=== PATIENT | male | born 1980 | race Caucasian/White ===

== ENCOUNTER 2019-01-20 20:14 | Emergency (ER) | payer SELFPAY ==
[~2019-01-20] VITALS: Ht 157.5 cm; Wt 72.7 kg
[2019-01-20] MEDS ORDERED: KEPPRA 500MG500 MG PO (20:36)
[2019-01-20 20:37] LABS: ALBUMIN 3.4 gm/dL (3.5-5.0); BILIRUBIN,TOTAL 3.9 mg/dL (0.0-1.0); C-REACTIVE PROTEIN 1.6 mg/dL (0.0-0.9); CALCIUM 8.2 mg/dL (8.4-10.2); CREATININE, serum 0.51 (0.66-1.25); POTASSIUM 3.6 mmol/L (3.4-5.0); TOTAL PROTEIN 7.1 gm/dL (6.4-8.2)
[2019-01-20 20:45] LABS: BASO # 0.1 (0.0-0.2); BASO % 0.9 % (0.0-2.0); EOS # 0.4 (0.0-0.7); EOS % 5.7 % (0-4.0); GRAN # 3.1 (1.4-6.5); HEMATOCRIT 39.8 % (42.0-52.0); HEMOGLOBIN 13.4 g/dl (13.5-18.0); LYMPH # 2.1 (1.2-3.4); LYMPH % 31.8 % (20.0-51.0); MEAN CELL VOLUME 100 fl (80.0-100.0); MEAN CORPUSCULAR HEMOGLOBIN 34 pg (27.0-31.0); MEAN CORPUSCULAR HGB CONC 34 g/dl (33.0-37.0); MEAN PLATELET VOLUME 9.7 fl (7.4-10.4); MONO # 0.8 (0.1-0.6); PLATELET COUNT 109 K/mm3 (130-400); RED BLOOD COUNT 3.97 M/mm3 (4.20-5.60); REDCELL DISTRIBUTION WIDTH-CV 16.3 % (11.5-14.5)
[2019-01-20 20:50] LABS: PROLACTIN 67.4 ng/mL (3.7-17.9)
[2019-01-20] MEDS ORDERED: KEPPRA1000 MG PO (21:07)
[2019-01-20 22:00] VITALS: BP 115/73; PULSE 100; TEMP 98.1
== END 2019-01-20 22:10 | disposition home or self-care (01) ==
LOC: COL.ER 20:14 → EDBD 20:14 → COL.ER 22:10
PROVIDERS: Emergency Medicine
DX: G40.909 Epilepsy, unspecified, not intractable, without status epilepticus (principal); R94.5 Abnormal results of liver function studies; K21.9 Gastro-esophageal reflux disease without esophagitis
CPT/HCPCS: J1953; J2060; J7030

== ENCOUNTER 2019-07-15 22:26 | Inpatient (IN) | payer SELFPAY ==
[~2019-07-15] VITALS: Ht 170.2 cm; Wt 89.0 kg
[~2019-07-15 22:26] MED LIST: KEPPRA 500MG500 MG PO; KEPPRA1000 MG PO
[2019-07-15 23:21] LABS: BASO # 0.1 (0.0-0.2); BASO % 0.9 % (0.0-2.0); EOS # 0.3 (0.0-0.7); EOS % 5.1 % (0-4.0); GRAN # 3.5 (1.4-6.5); HEMATOCRIT 30.6 % (42.0-52.0); HEMOGLOBIN 10.4 g/dl (13.5-18.0); LYMPH # 0.9 (1.2-3.4); LYMPH % 16.5 % (20.0-51.0); MEAN CELL VOLUME 98 fl (80.0-100.0); MEAN CORPUSCULAR HEMOGLOBIN 33 pg (27.0-31.0); MEAN CORPUSCULAR HGB CONC 34 g/dl (33.0-37.0); MEAN PLATELET VOLUME 8.4 fl (7.4-10.4); MONO # 0.6 (0.1-0.6); MONO % 11.3 % (1.7-9.3); PLATELET COUNT 149 K/mm3 (130-400); RED BLOOD COUNT 3.11 M/mm3 (4.20-5.60); REDCELL DISTRIBUTION WIDTH-CV 15.9 % (11.5-14.5)
[2019-07-15 23:33] LABS: ALBUMIN 2.7 gm/dL (3.5-5.0); BILIRUBIN,TOTAL 2.6 mg/dL (0.0-1.0); C-REACTIVE PROTEIN 4.7 mg/dL (0.0-0.9); CALCIUM 7.9 mg/dL (8.4-10.2); CREATININE, serum 0.52 (0.66-1.25); POTASSIUM 3.4 mmol/L (3.4-5.0)
[2019-07-16] VITALS (8 sets, daily range): BP systolic 115–159; BP diastolic 37–76; PULSE 74–115; TEMP 97.8–101.3
--- NOTE | 2019-07-16 04:17 | NUR ---
In to do inital assessment on the patient. patient is noncomplient when asking questions that pertain to the 5page assessment even with an judicial reporter and asking them in a different format. unable to get 5page assessment completed at this time from stopping at least 3 different times. lung sounds are clear. s1&s2 are audible. bowel sounds are audible. weeping ulcers on the left lower leg, none noticed on the right leg at this time. BLE edema to the lower legs. charge nurse notified that the patient did tell me that he does have shortness of breath especially in the mornings.
[2019-07-16 06:18] LABS: MEAN CELL VOLUME 100 fl (80.0-100.0); MEAN CORPUSCULAR HGB CONC 33 g/dl (33.0-37.0); PLATELET COUNT 136 K/mm3 (130-400); RED BLOOD COUNT 2.84 M/mm3 (4.20-5.60); REDCELL DISTRIBUTION WIDTH-CV 15.9 % (11.5-14.5)
[2019-07-16 06:24] LABS: HEMATOCRIT 28.4 % (42.0-52.0); HEMOGLOBIN 9.3 g/dl (13.5-18.0); MEAN CORPUSCULAR HEMOGLOBIN 33 pg (27.0-31.0)
[2019-07-16 06:35] LABS: ALBUMIN 2.3 gm/dL (3.5-5.0); CALCIUM 7.5 mg/dL (8.4-10.2); CREATININE, serum 0.43 (0.66-1.25); MAGNESIUM 1.8 mg/dL (1.6-2.3); POTASSIUM 3.5 mmol/L (3.4-5.0); TOTAL PROTEIN 6.2 gm/dL (6.4-8.2)
--- NOTE | 2019-07-16 08:00 | NUR ---
Patient in bed resting. Alert and oriented x 3. Assessment complete. Patient has ulcers to right mcallister. BLE with edema +2. IV fluids infusing per orders to left AC. Denies pain at this time. Denies further needs at this time.
--- NOTE | 2019-07-16 10:22 | NUR ---
Contacted Dr. Thao about patient diet, US ok to wait until Thursday per Dr. Thao
--- NOTE | 2019-07-16 11:24 | NUR ---
Met with patient at the door for translation with nurse. Patient slovak speaking: Patient reports that he resides locally with his Girlfriend. Patient reports that his emergency contact is his friend German at . Patient indicated that he will use a taxi or friend to get home. Patient reports that he uses crutches but not all the time. Patient denies any other DME use but is concerns about his wounds and how they are going to close and heal. Patient reports that he is in need of homehealth but does not have any money. DOes not have a PCP. Patient is okay with a referral for a PCP. Patient reports that he uses [facility] [address] for medications. SW will make referral to [facility] and to [facility] for financial supports.
--- NOTE | 2019-07-16 11:37 | NUR ---
Sent referral to [facility] and to [facility]. Via fax
--- NOTE | 2019-07-16 11:55 | NUR ---
Vascular here for echo and pj US .
--- NOTE | 2019-07-16 16:29 | NUR ---
Notified Stacia CHASE, patient has increased temp of 101, rechecked at 100.6. New order for tylenol entered.
[2019-07-16 18:31] LABS: RETIC # 0.09 M/mm3 (0.02-0.16); RETIC % 3.2 % (0.5-3.52)
[2019-07-16 18:49] LABS: IRON,SERUM 24 ug/dL (35-150)
--- NOTE | 2019-07-16 18:49 | NUR ---
Patient has done well throughout the day. Minimal needs. Educated patient on medications and use of urinal to track urine output. Denies pain throughout the day. Denies further needs at this time. Will report off to car shifter.
[2019-07-16 18:59] LABS: TOTAL IRON BINDING CAPACITY 225 ug/dL (261-462)
--- NOTE | 2019-07-16 21:25 | NUR ---
Wound culture obtained from right mcallister largest ulcer, draining brownish fluid. Has smaller ulcer below large ulcer on mcallister, also draining. Pt is alert and oriented x4. Is Romansh speaking, does speak and understand Congolese. Has IVF to left AC infusing without redness or swelling. Washed bilateral lower legs with chlorhexadine scrub, left open to air. Pt reports sensitivity to skin on legs, tolerates wash without problem. Has bilateral lower leg edema. Denies being a diabetic. Takes Melatonin at this time.
--- NOTE | 2019-07-17 | NUR ---
Pt resting well at this time. IV antibiotics and fluids infusing without problem. Using urinal at bedside, seizure pads on.
[2019-07-17 03:18] VITALS: BP 119/62; PULSE 98; TEMP 98.9
--- NOTE | 2019-07-17 06:00 | NUR ---
Pt denies needs, has used urinal x2 this shift. IV site patent to left AC.
[2019-07-17 07:12] LABS: BASO % 0.8 % (0.0-2.0); EOS # 0.2 (0.0-0.7); EOS % 4.7 % (0-4.0); GRAN % 57.8 % (42.2-75.2); LYMPH # 1.1 (1.2-3.4); LYMPH % 22.2 % (20.0-51.0); MEAN CELL VOLUME 101 fl (80.0-100.0); MEAN CORPUSCULAR HGB CONC 33 g/dl (33.0-37.0); MEAN PLATELET VOLUME 9.2 fl (7.4-10.4); MONO # 0.7 (0.1-0.6); MONO % 14.1 % (1.7-9.3); PLATELET COUNT 142 K/mm3 (130-400); RED BLOOD COUNT 2.94 M/mm3 (4.20-5.60); REDCELL DISTRIBUTION WIDTH-CV 16.4 % (11.5-14.5)
[2019-07-17 07:15] LABS: HEMATOCRIT 29.6 % (42.0-52.0); HEMOGLOBIN 9.9 g/dl (13.5-18.0); MEAN CORPUSCULAR HEMOGLOBIN 34 pg (27.0-31.0)
[2019-07-17 07:17] LABS: ALBUMIN 2.3 gm/dL (3.5-5.0); BILIRUBIN,TOTAL 2.3 mg/dL (0.0-1.0); CALCIUM 7.8 mg/dL (8.4-10.2); CREATININE, serum 0.53 (0.66-1.25); POTASSIUM 3.5 mmol/L (3.4-5.0); TOTAL PROTEIN 6.4 gm/dL (6.4-8.2)
[2019-07-17 08:19] VITALS: BP 141/83; PULSE 97; TEMP 98
--- NOTE | 2019-07-17 09:48 | NUR ---
Report rcvd this AM from PUJA Peralta. Pt is resting in bed. Pt has no c/o pain, just some discomfort from sleeping in the bed. Pt got up to ambulate to bathroom, has difficult time walking. Bilower extremeties very swollen. No further concerns at this time.
[2019-07-17 10:19] LABS: INR 1.6 (0.8-3.0); PROTHROMBIN TIME 18.9 SECONDS (9.7-12.8)
[2019-07-17 10:23] VITALS: BP 157/105; PULSE 130; TEMP 99.4
--- NOTE | 2019-07-17 10:39 | NUR ---
Upon entry of pt room, The pt is visibly chilled and shivering. Pt VSS are as follows: BP 157/105, HR 130, RR 38, SpO2 94% RA, T 99.4. Pt is in severe pain in the RUQ with radiation to the back. Pt abdomen is Rounded and firm. Pt states he is having a hard time breathing. Physician contacted.
--- NOTE | 2019-07-17 11:07 | NUR ---
Notified Physician of unstable VS.
[2019-07-17 11:25] VITALS: BP 156/88; PULSE 115; TEMP 99.7
--- NOTE | 2019-07-17 14:41 | NUR ---
Pt resting in room. I&O monitored, pt output 450. Pt has c/o pain, currently manageable. Will continue to Monitor.
[2019-07-17 15:27] VITALS: BP 131/70; PULSE 104; TEMP 99.2
--- NOTE | 2019-07-17 19:14 | NUR ---
Report given to PUJA Weeks
--- NOTE | 2019-07-17 19:30 | NUR ---
Report received, assumed care for stereo plotter operator. Assessment complete. A&Ox3-very drowsy. C/O pain to bilat lower extremities-rating 8/10 with faces-described as throbbing. Motrin given per dr order. Bilat lower extremities elevated on pillows with chux. Right lower ext with two open ulcer areas. Scant amount of yellow drainage noted. Multiple areas of old crusing. Left lower extremity with multiple crusting/healing ulcers. Toes black in color bilat. Denies current needs. Will monitor.
[2019-07-17 20:07] VITALS: BP 153/94; PULSE 109; TEMP 101.8
--- NOTE | 2019-07-17 20:47 | NUR ---
JOLENE Dave notified of elevated temp. New orders received and initiated.
--- NOTE | 2019-07-17 21:55 | NUR ---
JOLENE Sanchez notified of temp 101.5. OK to given tylenol dose early. Cold wash clothes to head-extra blankets removed and temp in room adjusted. Will monitor.
[2019-07-18] VITALS (7 sets, daily range): BP systolic 114–157; BP diastolic 56–85; PULSE 75–116; TEMP 97.8–100.8
--- NOTE | 2019-07-18 01:00 | NUR ---
C/O pain to bilat lower extremities-rating 8/10 using faces-described as throbbing. Mortin given per dr goldman
--- NOTE | 2019-07-18 02:00 | NUR ---
Bilat lower extremities washed with chlorhexidine-rinsed with warm water and pat dried. Placed on pillows with chux under. Tolerated well.
--- NOTE | 2019-07-18 04:42 | NUR ---
Rested well this shift. Did have a temp at 2000/0000. Treated and remains afebrile. Bilat lower legs were washed with chlorhexidine. Call light in reach. Will monitor.
[2019-07-18 06:00] LABS: BASO % 0.7 % (0.0-2.0); EOS # 0.1 (0.0-0.7); GRAN # 2.6 (1.4-6.5); GRAN % 60.1 % (42.2-75.2); LYMPH % 23.4 % (20.0-51.0); MEAN CELL VOLUME 99 fl (80.0-100.0); MEAN CORPUSCULAR HGB CONC 34 g/dl (33.0-37.0); MEAN PLATELET VOLUME 8.9 fl (7.4-10.4); MONO # 0.5 (0.1-0.6); MONO % 12.3 % (1.7-9.3); PLATELET COUNT 131 K/mm3 (130-400); RED BLOOD COUNT 2.83 M/mm3 (4.20-5.60); REDCELL DISTRIBUTION WIDTH-CV 16.3 % (11.5-14.5)
[2019-07-18 06:01] LABS: HEMATOCRIT 28.1 % (42.0-52.0); HEMOGLOBIN 9.4 g/dl (13.5-18.0); MEAN CORPUSCULAR HEMOGLOBIN 33 pg (27.0-31.0)
[2019-07-18 06:18] LABS: ALBUMIN 2.1 gm/dL (3.5-5.0); BILIRUBIN,TOTAL 1.7 mg/dL (0.0-1.0); CALCIUM 7.3 mg/dL (8.4-10.2); CREATININE, serum 0.51 (0.66-1.25); POTASSIUM 3.5 mmol/L (3.4-5.0)
--- NOTE | 2019-07-18 06:48 | NUR ---
Report to PUJA Rodriguez
--- NOTE | 2019-07-18 07:53 | NUR ---
Ultrasound here for abd US.
--- NOTE | 2019-07-18 08:00 | NUR ---
Patient in bed resting. Alert and oriented x 3. Assessment complete. Edema +3 to BLE. Ulcers x2 to right mcallister. INT to left AC, antibiotics infusing per orders. Denies pain at this time. Denies further needs at this time.
--- NOTE | 2019-07-18 10:13 | NUR ---
ASHLEY met with the patient to discuss setting up a PCP. The patient was agreeable to making a follow-up appointment with [facility]. ASHLEY provided the Romanian registration packet to the patient. Will continue to monitor.
--- NOTE | 2019-07-18 11:23 | NUR ---
Patient down for CT.
--- NOTE | 2019-07-18 11:48 | NUR ---
Patient back to room from CT
--- NOTE | 2019-07-18 12:27 | NUR ---
First visit from the print color operator. No needs right now.
--- NOTE | 2019-07-18 13:10 | NUR ---
Contacted Jayna for picc line placement
[2019-07-18 13:16] LABS: IRON,SERUM 24 ug/dL (35-150)
[2019-07-18 13:25] LABS: TOTAL IRON BINDING CAPACITY 217 ug/dL (261-462)
--- NOTE | 2019-07-18 20:00 | NUR ---
Report received, assumed care for finishing area supervisor. Assessment complete. A&Ox3-drowsy. PICC to right upper extremity flushes without difficulty. Right lower extremity with edema-+2-two open ulcerations. Crusting and old ulcerations noted. Toes are discolored bilat feet-black. Left lower extremity with crusting and old areas of ulceration. Chlorhexidine wash completed. Rinsed/pat dry-resting on chux/pillows. Encouraged to keep elevated. IS at bedside-reminded to use-uses appropriately. Denies needs. Will monitor.
--- NOTE | 2019-07-18 22:30 | NUR ---
Call received from Tele of increased heart rate in the 120s. This nurse to room-ambulated to bathroom and trying to have a bowel movement.
--- NOTE | 2019-07-18 22:45 | NUR ---
Vitals 157/85, pulse 116, o2 sat 99% on RA and temp 100.8. Motrin given per dr order. Will monitor.
[2019-07-19 00:10] VITALS: BP 106/58; PULSE 108; TEMP 98.5
[2019-07-19 04:04] LABS: CERULOPLASMIN 28 mg/dL (20-60)
[2019-07-19 04:25] VITALS: BP 118/62; PULSE 87; TEMP 98.3
--- NOTE | 2019-07-19 05:00 | NUR ---
Rested well this shift. Chlorhexidine wash completed earlier in the shift. Received Motrin one time for temp of 100.8. PICC in right upper WNL. Denies needs. Call light in reach. Will monitor.
[2019-07-19 06:38] LABS: BASO % 0.4 % (0.0-2.0); EOS % 0.7 % (0-4.0); GRAN # 2.8 (1.4-6.5); GRAN % 62.2 % (42.2-75.2); LYMPH % 23.3 % (20.0-51.0); MEAN CELL VOLUME 99 fl (80.0-100.0); MEAN CORPUSCULAR HGB CONC 34 g/dl (33.0-37.0); MEAN PLATELET VOLUME 8.8 fl (7.4-10.4); MONO # 0.6 (0.1-0.6); MONO % 13.2 % (1.7-9.3); PLATELET COUNT 118 K/mm3 (130-400); REDCELL DISTRIBUTION WIDTH-CV 16.1 % (11.5-14.5)
[2019-07-19 06:40] LABS: HEMATOCRIT 26.6 % (42.0-52.0); HEMOGLOBIN 8.9 g/dl (13.5-18.0); MEAN CORPUSCULAR HEMOGLOBIN 33 pg (27.0-31.0)
[2019-07-19 06:50] LABS: INR 1.7 (0.8-3.0); PROTHROMBIN TIME 19.8 SECONDS (9.7-12.8)
[2019-07-19 07:01] LABS: BILIRUBIN,TOTAL 1.4 mg/dL (0.0-1.0); CHOLESTEROL RISK RATIO 4.4; CREATININE, serum 0.56 (0.66-1.25); POTASSIUM 3.4 mmol/L (3.4-5.0); TOTAL PROTEIN 5.7 gm/dL (6.4-8.2)
[2019-07-19 07:30] LABS: THYROID STIMULATING HORMONE 1.82 uIU/mL (0.465-4.680)
[2019-07-19 07:33] LABS: BILIRUBIN,DIRECT 0.5 mg/dL (0.0-0.4)
--- NOTE | 2019-07-19 07:34 | NUR ---
Report to PUJA Iqbal
[2019-07-19 08:28] VITALS: BP 132/74; PULSE 90; TEMP 98.5
--- NOTE | 2019-07-19 09:40 | NUR ---
Patient resting in bed reporting pain to his upper abdomen. It is distended and firm, but all quads are active. Had last bowel movement yesterday night.
--- NOTE | 2019-07-19 10:44 | NUR ---
Patient resting in bed at this time, awaiting his procedure.
--- NOTE | 2019-07-19 10:57 | NUR ---
Call placed to Radiology and was told that patient will have procedure after lunch per Dr. Coley. Patient has signed the procedure consent and he is NPO until following the procedure. Will continue to monitor.
--- NOTE | 2019-07-19 10:57 | NUR ---
Eren with finance will verify with his industrial maintenance manager if he can have the patient apply for SOBRA due to his medical conditions. Eren does verify a [place] financial assistance application was given. Eren will try to use the language line fill out applications. Will continue to monitor.
--- NOTE | 2019-07-19 11:02 | NUR ---
Patient is alert and oriented. denies any pain. breath sound clear, heart sound is normal. radial pulse 2+, lower extremity pulse not present to palpitation. onychomycosis on toe nails. complain of abdomen pain. 3+ edema to bilateral lower extremity.
[2019-07-19 11:20] VITALS: BP 139/92; PULSE 92; TEMP 98.4
--- NOTE | 2019-07-19 11:20 | NUR ---
Patient reporting pain to upper abdomen and given prn Motrin with a sip of water. Currently resting in bed, call light in reach. Will continue to monitor.
--- NOTE | 2019-07-19 12:06 | NUR ---
Left a message for Dr. Sweeney regarding ID consult awaiting a return call.
--- NOTE | 2019-07-19 14:37 | NUR ---
This nurse spoke with Dr. Sweeney see his note.
[2019-07-19 14:47] LABS: PERITONEAL -POLYMORPHONUCLEAR 2.9 % (0-25); PERITONEAL FLUID RBC 0 /mm3 (0-0)
[2019-07-19 15:53] LABS: HIV 1/2 Antibodies Non-Reactive; HIV-1p24 Antigen Non-Reactive
[2019-07-19 16:16] LABS: HEPATITIS B CORE AB,TOTAL Negative (()); HEPATITIS B SURFACE ANTIBODY 2.2 (())
--- NOTE | 2019-07-19 16:28 | NUR ---
Per orders of RENA Tejada - Bilateral lower legs were cleansed with surgical scrub then patted dry. Two open ulcers observed to Right Lower Leg. Medial RLL oval open ulcer had serous drainage and measured at (H-3 cm x W-2.5 cm x D-3 cm); Lateral circular open ulcer had serous drainage and measured (H-2 cm x W-1.5 cm). Both open ulcers were cleansed and packed with wet to dry dressing. Secured with Hypefix tape. Patient tolerated with minimal discomfort reported. Will continue to monitor.
[2019-07-19 17:06] VITALS: BP 119/69; PULSE 86; TEMP 98.7
--- NOTE | 2019-07-19 19:43 | NUR ---
Upon entering patient's room observed patient's IV tubing on the floor and was disconnected from his IV. Patient did not know what happened. The Vancomycin had poured out all over the floor. There was 100 ml still in the bag. New tubing was placed and the remaining Vancomycin was not enough to infuse. Pharmacy was called and they suggested to not give an additional dose, but rather just give his next dose as scheduled. This nurse cleaned up floor and labeled new IV tubing. Patient currently resting in bed. Patient was concerned about his girlfriend since he reported that she has gotten boils on her legs and on her head and he was concerned about her possibly having the MRSA. Patient's girfriend was instructed by PUJA Swann to talk with her PCP or go to [facility] to be evaluated.
[2019-07-19 19:48] VITALS: BP 134/69; PULSE 81; TEMP 98.6
--- NOTE | 2019-07-19 22:00 | NUR ---
Pt. laying in bed at this time. Pt. is A&OX3, assessment complete. PICC to rt.upper arm patent. Dressing to RLE CDI. Pt. denies pain or other needs, call light within reach.
[2019-07-20 00:24] VITALS: BP 153/86; PULSE 94; TEMP 98.9
[2019-07-20 04:59] VITALS: BP 155/81; PULSE 113; TEMP 100.8
[2019-07-20 05:23] LABS: HEPATITIS AB (HAV) IGG INDEX 10.32 Index (<=1.00)
[2019-07-20 06:04] LABS: BASO % 0.6 % (0.0-2.0); EOS # 0.1 (0.0-0.7); EOS % 1.7 % (0-4.0); GRAN # 3.1 (1.4-6.5); GRAN % 59.4 % (42.2-75.2); LYMPH # 1.4 (1.2-3.4); LYMPH % 26.4 % (20.0-51.0); MEAN CELL VOLUME 98 fl (80.0-100.0); MEAN CORPUSCULAR HEMOGLOBIN 33 pg (27.0-31.0); MEAN CORPUSCULAR HGB CONC 33 g/dl (33.0-37.0); MEAN PLATELET VOLUME 9.1 fl (7.4-10.4); MONO # 0.6 (0.1-0.6); MONO % 11.3 % (1.7-9.3); PLATELET COUNT 123 K/mm3 (130-400); RED BLOOD COUNT 3.05 M/mm3 (4.20-5.60); REDCELL DISTRIBUTION WIDTH-CV 16.2 % (11.5-14.5)
[2019-07-20 06:16] LABS: ALBUMIN 2.3 gm/dL (3.5-5.0); BILIRUBIN,TOTAL 1.4 mg/dL (0.0-1.0); CALCIUM 7.5 mg/dL (8.4-10.2); CREATININE, serum 0.48 (0.66-1.25); POTASSIUM 3.8 mmol/L (3.4-5.0); TOTAL PROTEIN 6.2 gm/dL (6.4-8.2)
[2019-07-20 07:26] VITALS: BP 132/78; PULSE 111; TEMP 100.7
[2019-07-20 09:18] LABS: ALPHA 1 ANTITRYPSIN TOTAL 162.7 mg/dL (())
--- NOTE | 2019-07-20 12:40 | NUR ---
HOSPITALIST CARE TEAM ROUNDING. NO NEW ORDERS. WILL MONITOR.
[2019-07-20 13:23] LABS: IMMUNO G SUBCLASS 1 853.1 mg/dL (()); IMMUNO G SUBCLASS 2 626.9 mg/dL (()); IMMUNO G SUBCLASS 3 93.6 mg/dL (()); IMMUNO G SUBCLASS 4 237.9 mg/dL (3.9-86.4)
[2019-07-20 14:04] LABS: FOLATE (FOLIC ACID) 7.1 ng/mL (>=4.0)
[2019-07-20 14:45] VITALS: BP 140/58; BP 1400/58; PULSE 86; TEMP 98.4
[2019-07-20 20:00] VITALS: BP 161/95; PULSE 98; TEMP 99.3
--- NOTE | 2019-07-20 21:52 | NUR ---
Alert and oriented. Denies any pain or discomfort at this time. Meds administered. PICC to MAURICIO intact, flushed, dressing CDI. Tele monitor in place, leads checked. ua collected. BLE 3-4+ edema with multiple scabbed over ulcer/wound. Rt mcallister with x2 open ulcer, dressing changed. Needs met at this time. Contact precautions in place. Call light within reach.
[2019-07-20 23:27] LABS: MUCOUS Present /lpf; PH 7 (5-8); SQUAMOUS EPITHELIAL None Seen /hpf; URINE APPEARANCE Clear; URINE BACTERIA Rare /hpf; URINE BILIRUBIN Negative (NEGATIVE); URINE BLOOD 1+ (NEGATIVE); URINE COLOR Yellow; URINE GLUCOSE Negative (NEGATIVE); URINE KETONE Negative (NEGATIVE); URINE LEUKOCYTE ESTERASE Negative (NEGATIVE); URINE NITRATE Negative (NEGATIVE); URINE PROTEIN(semi-quant) Negative (NEGATIVE); URINE RBC 0-2 /hpf; URINE UROBILINOGEN Negative (NEGATIVE); URINE WBC 0-2 /hpf
[2019-07-20 23:34] LABS: COLLECTION METHOD CLEAN CATCH
[2019-07-20 23:41] LABS: URINE PROTEIN:CREAT RATIO 0.53 (0.00-0.14)
[2019-07-21] VITALS (261 sets, daily range): BP systolic 125–131; BP diastolic 61–93; PULSE 91–115; TEMP 98.9–102.9; O2SAT 63–100
--- NOTE | 2019-07-21 05:35 | NUR ---
Pt had T102.9. PRN tylenol administered. Temp decreased to 100.2. Denies any pain or discomfort. Meds administered. Needs met. Made no complaints during this shift. Call light within reach.
[2019-07-21 06:10] LABS: BASO % 0.4 % (0.0-2.0); EOS % 0.4 % (0-4.0); GRAN # 2.6 (1.4-6.5); GRAN % 57.9 % (42.2-75.2); LYMPH # 1.3 (1.2-3.4); LYMPH % 29.3 % (20.0-51.0); MEAN CELL VOLUME 97 fl (80.0-100.0); MEAN CORPUSCULAR HGB CONC 34 g/dl (33.0-37.0); MEAN PLATELET VOLUME 9.2 fl (7.4-10.4); MONO # 0.5 (0.1-0.6); MONO % 11.6 % (1.7-9.3); PLATELET COUNT 99 K/mm3 (130-400); RED BLOOD COUNT 2.91 M/mm3 (4.20-5.60); REDCELL DISTRIBUTION WIDTH-CV 16.1 % (11.5-14.5)
[2019-07-21 06:14] LABS: HEMATOCRIT 28.1 % (42.0-52.0); HEMOGLOBIN 9.4 g/dl (13.5-18.0); MEAN CORPUSCULAR HEMOGLOBIN 32 pg (27.0-31.0)
[2019-07-21 06:25] LABS: BILIRUBIN,TOTAL 1.1 mg/dL (0.0-1.0); CREATININE, serum 0.54 (0.66-1.25); POTASSIUM 3.9 mmol/L (3.4-5.0); TOTAL PROTEIN 5.8 gm/dL (6.4-8.2)
--- NOTE | 2019-07-21 07:20 | NUR ---
Report given to PUJA Barr.
--- NOTE | 2019-07-21 10:48 | NUR ---
SW contact [facility], left message for the disablity quality assurance representative.
[2019-07-21 11:22] LABS: ANTISMOOTH MUSCLE ANTIBODY Negative (Negative)
--- NOTE | 2019-07-21 14:30 | NUR ---
Pt arrived to room 12, he is A/O x4. His breathing is even and unlabored on RA, lung sounds CTA. HR even and regular. Pt denies any pain, bilateral feet 3+ edema, and crusting and cracking present. Several sores to bilateral shins, dressing on to R mcallister. No SOB or cough present per patient report, currently on RA. Pt denies N/V and diarrhea. PICC line to RUE, both lumens flush without complications. No needs at this time. Call light within reach.
[2019-07-22] VITALS (447 sets, daily range): BP systolic 116–154; BP diastolic 65–85; PULSE 79–113; TEMP 97.8–101.4; O2SAT 60–100
--- NOTE | 2019-07-22 06:34 | NUR ---
Patient has had an uneventful night. Remains afebrile. Continues to be tachycardic. Urine output adequate. IV antibiotics given as ordered. Patient denies pain and denies needs. Bilateral lower extremities edematous and red. Appear to be scaly in nature. Dressing noted to right mcallister/calf. PICC to MAURICIO flushes with ease. Continues on contact/droplet precautions. Will continue to monitor.
--- NOTE | 2019-07-22 07:30 | NUR ---
Patient resting in bed at this time. Patient rouses easily and is alert and oriented while awake. No cough observed. Patient denies pain or needs, call light within reach.
--- NOTE | 2019-07-22 17:35 | NUR ---
Patient has continued to rest in bed today. Patient remains alert and oriented while awake and is easy to rouse. Patient continues to have a low grade fever but denies pain or discomfort at this time. [place] light within reach.
--- NOTE | 2019-07-22 21:18 | NUR ---
Pt. laying in bed at this time. Pt. is A&OX3, assessment complete. PICC to rt. upperarm patent. Pt. denies pain or other needs, call light within reach.
[2019-07-22 22:12] LABS: TRICYCLIC ANTIDEPRESS URINE NEGATIVE
[2019-07-23] VITALS (688 sets, daily range): BP systolic 121–152; BP diastolic 72–93; PULSE 85–110; TEMP 97.7–101.7; O2SAT 66–100
[2019-07-23 05:21] LABS: BASO % 0.4 % (0.0-2.0); EOS % 0.8 % (0-4.0); GRAN # 2.7 (1.4-6.5); GRAN % 56.6 % (42.2-75.2); LYMPH # 1.5 (1.2-3.4); LYMPH % 30.5 % (20.0-51.0); MEAN CELL VOLUME 96 fl (80.0-100.0); MEAN CORPUSCULAR HGB CONC 34 g/dl (33.0-37.0); MEAN PLATELET VOLUME 9.5 fl (7.4-10.4); MONO # 0.6 (0.1-0.6); MONO % 11.5 % (1.7-9.3); PLATELET COUNT 95 K/mm3 (130-400); RED BLOOD COUNT 3.02 M/mm3 (4.20-5.60); REDCELL DISTRIBUTION WIDTH-CV 15.9 % (11.5-14.5)
[2019-07-23 05:26] LABS: HEMATOCRIT 28.9 % (42.0-52.0); HEMOGLOBIN 9.7 g/dl (13.5-18.0); MEAN CORPUSCULAR HEMOGLOBIN 32 pg (27.0-31.0)
[2019-07-23 05:58] LABS: ALBUMIN 2.1 gm/dL (3.5-5.0); BILIRUBIN,TOTAL 1.4 mg/dL (0.0-1.0); C-REACTIVE PROTEIN 3.7 mg/dL (0.0-0.9); CREATININE, serum 0.56 (0.66-1.25); MAGNESIUM 1.7 mg/dL (1.6-2.3); POTASSIUM 3.7 mmol/L (3.4-5.0); TOTAL PROTEIN 5.9 gm/dL (6.4-8.2)
--- NOTE | 2019-07-23 08:33 | NUR ---
Pt assessment complete. Pt is laying in bed upon entry, he arouses to voice. Reports he did not sleep well last night. Pt denies any pain. No SOB, occasional cough present. PICC to RUE, flushes without complications. Pt has no needs at this time. Call light within reach.
--- NOTE | 2019-07-23 18:48 | NUR ---
Pt was drowsy through the day. Had no appetite and did not eat a meal. Reports he feels "too full". Stomach appears to be more distended. No N/V. Pt had a BM, reports it was not loose. Remains on RA but breathing is tachypneic with occasional cough. PRN Tylenol administered for elevated temperature. Will continue to monitor.
[2019-07-24] VITALS (355 sets, daily range): BP systolic 115–137; BP diastolic 63–88; PULSE 88–132; TEMP 98.3–101.8; O2SAT 51–100
--- NOTE | 2019-07-24 07:02 | NUR ---
Gave report to PUJA Alexandra.
--- NOTE | 2019-07-24 07:41 | NUR ---
Pt assessment complete. Pt is laying in bed upon entry, arouses to voice. He is oriented. Pt denies any pain at this time. Denies N/V or SOB. O2 sats >90%, but patient is tachypneic with an occasional cough. Pt has no diarrhea, abdomen is distended. Pt states he feels full. Vanc infusing into RUE without complications. No further needs. Call light within reach.
--- NOTE | 2019-07-24 11:50 | NUR ---
Vancomycin Follow-up Pharmacy Note Current regimen: 1.5g Q12H Vancomycin trough: 9.38 Adjustments: 1.5g Q8H starting 07/24/19 @ 13:00. Will continue to follow.
--- NOTE | 2019-07-24 18:52 | NUR ---
Pt slept most of the day. Denied pain. Remained tachycardic and tachypneic, but denied SOB. Remained on RA. Pt did have a BM, denies diarrhea. Intermittent fevers, PRN Motrin administered. Isolation precautions in place will continue to monitor.
--- NOTE | 2019-07-24 21:45 | NUR ---
Assessment complete. Resting in bed. Denies pain. C/O of edematous scrotum. Informed patient that this nurse would notifify provider. States that his scrotum is not painful, but that this is not usual for him. Denies needs at this time.
[2019-07-25] VITALS (227 sets, daily range): BP systolic 97–147; BP diastolic 47–92; PULSE 98–124; TEMP 99.7–104.1; O2SAT 79–100
--- NOTE | 2019-07-25 07:00 | NUR ---
Report received from Camilla Herndon. Pt in bed resting with eyes closed, per nightshift has had a fever this morning and is treating now, will continue to monitor.
--- NOTE | 2019-07-25 08:34 | NUR ---
Radha from [facility] contacted . She states that the patient is does not qualify for any waiver programs and is too young for these programs anyhow. Will continue to monitor.
--- NOTE | 2019-07-25 08:45 | NUR ---
PICC intact right upper arm. With sterile technique right upper arm PICC dressing change done with insertion site cleansed with ChloraPrep 1, chlorhexidine impregnated disc applied, skin prep, StatLock, and Tegaderm applied. Both changed and flushed with sterile normal saline with good blood return noted. No signs or symptoms of IV complications noted. No concerns voiced. Arm wrapped with Bennie to protect catheter.
--- NOTE | 2019-07-25 09:00 | NUR ---
Assessment charted. PT in bed resting, feeling better but still has fever of 101.4 after tylenol. RLE dressing is soiled, will change. NO appettie this am. PICC to Denies needs, per Navin consulting [facility] for adivce, will continue to monitor.
[2019-07-25 10:01] LABS: INR 1.5 (0.8-3.0); PROTHROMBIN TIME 18.2 SECONDS (9.7-12.8)
[2019-07-25 10:05] LABS: BASO % 0.2 % (0.0-2.0); EOS # 0.1 (0.0-0.7); EOS % 2.1 % (0-4.0); GRAN # 5.1 (1.4-6.5); GRAN % 81.2 % (42.2-75.2); LYMPH # 0.5 (1.2-3.4); LYMPH % 8.5 % (20.0-51.0); MEAN CELL VOLUME 95 fl (80.0-100.0); MEAN CORPUSCULAR HGB CONC 34 g/dl (33.0-37.0); MEAN PLATELET VOLUME 10.5 fl (7.4-10.4); MONO # 0.5 (0.1-0.6); MONO % 7.2 % (1.7-9.3); PLATELET COUNT 99 K/mm3 (130-400); RED BLOOD COUNT 2.98 M/mm3 (4.20-5.60); REDCELL DISTRIBUTION WIDTH-CV 15.8 % (11.5-14.5)
[2019-07-25 10:08] LABS: BILIRUBIN,TOTAL 1.4 mg/dL (0.0-1.0); CALCIUM 6.7 mg/dL (8.4-10.2); CREATININE, serum 0.91 (0.66-1.25); HEMATOCRIT 28.3 % (42.0-52.0); HEMOGLOBIN 9.6 g/dl (13.5-18.0); MAGNESIUM 1.6 mg/dL (1.6-2.3); MEAN CORPUSCULAR HEMOGLOBIN 32 pg (27.0-31.0); POTASSIUM 3.8 mmol/L (3.4-5.0); TOTAL PROTEIN 5.8 gm/dL (6.4-8.2)
--- NOTE | 2019-07-25 10:48 | NUR ---
received Vanco Trough result. Discussed with Jassi in Pharmacy during rounding.
[2019-07-25 14:51] LABS: COCCIDIOIDES AB IGG Negative (Negative); COCCIDIOIDES AB IGM Negative (Negative); COCCIDIOIDES CF Negative (Negative)
--- NOTE | 2019-07-25 15:04 | NUR ---
delivery sales worker spoke with Eren, financial counselor, and confirmed that patient will not qualify for Medicaid nor disability. Just will work to complete a FAA application for patient.
--- NOTE | 2019-07-25 15:36 | NUR ---
Vancomycin Follow-up Pharmacy Note Current regimen: 1.5 IV Q 8HR Vancomycin trough: 27.2 Adjustments: CHANGE TO VANCOMYCIN 1.75 GM IV Q 12HR, CONTINUE TO MONITOR, SCR=0.9,GFR=93,CELLULITIS (MRSA,ALCALIGNES,SERRATIA)
--- NOTE | 2019-07-25 17:35 | NUR ---
Pt continues to have high fevers despite medications. REsting in bed with sheet and blanket over body often. Resting quietly between disturbances, has not eaten much today but states he "feels full". Dressing change to RLE, wet to dry, pt tolerated well, 2 large open areas on RLE present. Bed bath and linens changed, pt continues to have significant scrotal and groin swelling, elevated on pillow for comfort. Pt denies pain but feels tightness in skin. Will give bedside shift report to nightshift nurse who will resume care.
--- NOTE | 2019-07-25 20:05 | NUR ---
ASSESSMENT COMPLETE. RESTING IN BED. C/O OF FEELING "COLD'. FEBRILE TEMP 104.1. C/O BACK PAIN. DENIES NEEDS AT THIS TIME.
[2019-07-26] VITALS (106 sets, daily range): BP systolic 104–144; BP diastolic 56–82; PULSE 98–122; TEMP 100.1–102.4; O2SAT 83–99
[2019-07-26 10:05] LABS: CALCIUM 6.7 mg/dL (8.4-10.2); CREATININE, serum 1.42 (0.66-1.25); POTASSIUM 3.5 mmol/L (3.4-5.0)
[2019-07-26 10:06] LABS: MEAN CELL VOLUME 96 fl (80.0-100.0); MEAN CORPUSCULAR HGB CONC 34 g/dl (33.0-37.0); MEAN PLATELET VOLUME 10.1 fl (7.4-10.4); PLATELET COUNT 96 K/mm3 (130-400); RED BLOOD COUNT 2.79 M/mm3 (4.20-5.60); REDCELL DISTRIBUTION WIDTH-CV 15.9 % (11.5-14.5)
[2019-07-26 10:07] LABS: HEMATOCRIT 26.7 % (42.0-52.0); HEMOGLOBIN 9.1 g/dl (13.5-18.0); MEAN CORPUSCULAR HEMOGLOBIN 33 pg (27.0-31.0)
[2019-07-26 10:35] LABS: BAND 9 % (0-10); LYMPHOCYTE 6 % (20.0-51.0); NEUTROPHILS 83 % (42.0-75.2)
[2019-07-26 10:37] LABS: HYPOCHROMIA 1+; PLATELET ESTIMATE DECREASED (NORMAL)
--- NOTE | 2019-07-26 11:30 | NUR ---
PICC intact right upper arm with sterile dressing change done with insertion site cleansed with chloraprep x 1, chlorhexidine impregnated disk applied, skin prep, stat lock, and tegaderm applied. moderate amount of dried reddish drainage was noted at site. no further drainage noted. no signs or symptoms of IV complications noted. no concerns voiced. re-wrapped with brayden to protect catheter.
--- NOTE | 2019-07-26 15:50 | NUR ---
The patient needs assistance filling out the FAA. SW attempted to contact the patient's friend Kit Barlow , left message. SW attempted to contact the patient's friend, Dulce, , no answer. SW attempted to contact the patient on the phone he as on his demographics information, it was busy. Will continue to monitor.
--- NOTE | 2019-07-26 17:43 | NUR ---
Pt assessment completed and charted. Pt alert, arouses to verbal stimuli but has slept most of shift with sheet and blanket covering body and face. Pt has remained febrile, denies pain, states he has much discomfort to scrotum (very swollen and edematous). BLE edema noted w/ unopened, healing ulcers to Lt mcallister. Rt mcallister has dressing, CDI. Pt refused breakfast and lunch. Pt on room air, increased RR. Abdomen is firm and distended, bandaid to rt sd from paracentesis. Pt has MAURICIO PICC, both ports flush w/o complications. IVY Dorantes in for dressing change, dressing had quite a bit of drainage. Pt hasn't expressed any concerns today.
--- NOTE | 2019-07-26 18:02 | NUR ---
Vancomycin Follow-up Pharmacy Note Current regimen: Vancomycin 1.75 gm IV q12h Vancomycin trough: 28.98 Adjustments: Will hold Vancomycin tonight and restart tomorrow with Vancomycin 1.75 gm IV q24h. Pharmacy will continue to [facility][1].
--- NOTE | 2019-07-26 20:11 | NUR ---
REPORT GIVEN TO PUJA CURRAN. PATIENT FEBRILE WITH TEMP 102.7 SPO2 89-90%. HE IS ENCOURAGED TO TAKE DEEPER BREATHS. HE VERBALIZES UNDERSTANDING.
--- NOTE | 2019-07-26 20:45 | NUR ---
Received report from PUJA Yo. Alert and oriented. Pt resting in bed upon entry. Denies any discomfort at this time. Rt upper arm PICC intact, flushed, dressing CDI. Febrile. PRN motrin administered by day shift. Will monitor temp. Rt mcallister with dressing in place. BLE elevated on pillow. Meds administered as ordered. Pt refused dinner. PT requested ensure and consumed. Audible wheezing heard, RR 25, SPo2 87%-91% while on RA. Pt placed on 2LO2, SpO2 96%. Instructed pt to perform slow deep breathing. Scrotal swelling observed, pt understands ultrasound in the AM. Needs met at this time.
[2019-07-27] VITALS (862 sets, daily range): BP systolic 88–141; BP diastolic 51–85; PULSE 80–125; TEMP 97.6–102.9; O2SAT 68–100
[2019-07-27 06:41] LABS: MEAN CELL VOLUME 95 fl (80.0-100.0); MEAN CORPUSCULAR HGB CONC 34 g/dl (33.0-37.0); MEAN PLATELET VOLUME 10.1 fl (7.4-10.4); PLATELET COUNT 101 K/mm3 (130-400); RED BLOOD COUNT 3.03 M/mm3 (4.20-5.60); REDCELL DISTRIBUTION WIDTH-CV 15.9 % (11.5-14.5)
[2019-07-27 06:42] LABS: HEMATOCRIT 28.8 % (42.0-52.0); HEMOGLOBIN 9.8 g/dl (13.5-18.0); MEAN CORPUSCULAR HEMOGLOBIN 32 pg (27.0-31.0)
[2019-07-27 06:53] LABS: C-REACTIVE PROTEIN 5.8 mg/dL (0.0-0.9); CALCIUM 7.4 mg/dL (8.4-10.2); CREATININE, serum 1.44 (0.66-1.25); POTASSIUM 3.9 mmol/L (3.4-5.0)
--- NOTE | 2019-07-27 07:00 | NUR ---
Report received from PUJA Llanos. Patient visualized from the door. He is currently sleeping in bed. VS WNL, currently wearing O2. Tachypneic while resting.
--- NOTE | 2019-07-27 07:15 | NUR ---
Lab called with vanc trough 22.11. Current infusion of vanc stopped at this time. Endorsed result to day shift RN.
[2019-07-27 07:24] LABS: PARTIAL THROMBOPLASTIN TIME 57.3 SECONDS (26.0-37.0)
--- NOTE | 2019-07-27 07:24 | NUR ---
Report given to PUJA Yo.
--- NOTE | 2019-07-27 08:00 | NUR ---
Patient calls for help. I go in room and he reports a fall when he just got up to use the toilet. I assess the patient. No evidence of injury. Patient denies hitting his head when he fell. VS WNL.
--- NOTE | 2019-07-27 08:30 | NUR ---
Dr. Boland called at this time. He is going to see the patient for a consult, i report my observations of this patient, including his respiratory status, O2 needs, restlessness and recent fall. I ask him about obtaining an ABG. Order received. He states that he will be over to see the patient soon. DATABASE OPERATOR Ruthy Called to get the ABG. Will continue to monitor.
[2019-07-27 08:58] LABS: BAND 38 % (0-10); LYMPHOCYTE 7 % (20.0-51.0); NEUTROPHILS 55 % (42.0-75.2)
[2019-07-27 09:06] LABS: ARTERIAL BLD GAS TCO2 CT 19.5; ARTERIAL BLOOD GAS BASE EXCESS -5.2 (-2-2); ARTERIAL BLOOD GAS HCO3 18.5 meq/L (22-26); ARTERIAL BLOOD GAS PCO2 30.2 mmHg (35-45); ARTERIAL BLOOD GAS PO2 55.3 mmHg (80-100); ARTERIAL BLOOD GAS pH 7.41 (7.35-7.45)
[2019-07-27 09:11] LABS: PLATELET ESTIMATE DECREASED (NORMAL)
--- NOTE | 2019-07-27 10:41 | NUR ---
The patient was tranferred to ICU Room 2, due to a decline. ASHLEY contacted the patient's girlfriend, Dulce. Dulce reports that the patient's parents have and that he has no children. She states that he has six or seven siblings and that they all live in [place]. Her and the patient's [id number], Christopher Barlow (ph#[phone]), live in [place]. ASHLEY collaborated with the patient's RN, Sanaz, and hospitalist. Sanaz discussed who he would want as his decision maker and DPOA-HC, via the yakut interpretor. The patient was agreeable to completing a DPOA-HC and he designated his girlfriend, Dulce. The alternate his [id number], Christopher. Sanaz and the hospitalist witnessed the patient's signature. A copy was placed in the patient's chart. ASHLEY contacted and updated Dulce. Dulce was agreeable with being the patient's DPOA-HC. ASHLEY to continue to follow.
--- NOTE | 2019-07-27 11:23 | NUR ---
Dr. Boland sees the patient shortly after our last converstion. He gives order to move patient to ICU. Patient is moved to ICU and placed on AirVo at 73% with 45L flow. Patient is put on the phone with the translator/interpreter and Dr. Holden and Dr. Boland. They explain his situation to him with the assistance of the translator/interpreter. They talk about intubation, DPOA, prognosis, treatment plan and convolescent plasma. Patient verbalizes understanding. He agrees to be intubated if necessary. He names his girlfriend, Dulce, his DPOA with Christopher, his brother in law as the alternate.
[2019-07-27 14:02] LABS: ARTERIAL BLD GAS O2 SATURATION 92.7 % (92-100); ARTERIAL BLD GAS TCO2 CT 21.9; ARTERIAL BLOOD GAS BASE EXCESS -1.7 (-2-2); ARTERIAL BLOOD GAS PO2 64.2 mmHg (80-100); ARTERIAL BLOOD GAS pH 7.48 (7.35-7.45)
--- NOTE | 2019-07-27 15:00 | NUR ---
Patient and myself have further discussion about the plan of care. He asks if he is going to get the plasma. I explain to him that we are waiting on the approval and as soon as approval is received we will be able to administer it. He verbalizes understanding. He asks me about his prognosis. I repeat to him what the physician's stated earlier, explaining what the recommended treatment plan is and that if we do nothing, he will most likely have a poor outcome. He verbalizes understanding.
--- NOTE | 2019-07-27 16:15 | NUR ---
DR. ESQUIVEL HERE TO CHECK ON PATIENT. UPDATE GIVEN. ORDER RECEIVED FOR CONVALESCENT PLASMA. PATIENT APPROVED. AWAITING BLOOD BANK NOTIFICATION THAT IT IS READY.
--- NOTE | 2019-07-27 17:49 | NUR ---
PATIENT IS RESTING MORE COMFORTABLY THIS AFTERNOON. HR NOW LOW 100s. TEMP 100.1 ORALLY. HE HAS 3RD BOUT OF DIARRHEA. IT IS DARK GREEN IN COLOR AND LIQUID IN CONSISTENTCY. DR. CARRERO MADE AWARE OF LOOSE STOOLS DURING UPDATE CALL AROUND [phone].
--- NOTE | 2019-07-27 18:00 | NUR ---
Dr. Malcolm here to see the patient for nephrology consult.
--- NOTE | 2019-07-27 20:04 | NUR ---
Report given to PUJA Flores. Patient has convalescent plasma transfusing and is tolerating well. VS WNL. Care turned over at this time.
[2019-07-28] VITALS (806 sets, daily range): BP systolic 82–144; BP diastolic 35–97; PULSE 84–113; TEMP 97.5–100.7; O2SAT 44–100
[2019-07-28 00:40] LABS: ARTERIAL BLD GAS O2 SATURATION 83.2 % (92-100); ARTERIAL BLD GAS TCO2 CT 20.2; ARTERIAL BLOOD GAS BASE EXCESS -4.4 (-2-2); ARTERIAL BLOOD GAS HCO3 19.3 meq/L (22-26); ARTERIAL BLOOD GAS PCO2 30.6 mmHg (35-45); ARTERIAL BLOOD GAS PO2 49.6 mmHg (80-100); ARTERIAL BLOOD GAS pH 7.42 (7.35-7.45)
--- NOTE | 2019-07-28 01:18 | NUR ---
Anesthesia at bedside to initiate intubation and timeout. Patient tolerated procedure well. Will continue to monitor.
--- NOTE | 2019-07-28 01:40 | NUR ---
Patient coughing against ventilator and pulling at restraints. BP 92/64. Initiated propofol at this time at 10 mcg/kg/min due to slightly low BP. Will continue to monitor.
[2019-07-28 03:47] LABS: ARTERIAL BLD GAS O2 SATURATION 89.8 % (92-100); ARTERIAL BLD GAS TCO2 CT 18.7; ARTERIAL BLOOD GAS HCO3 17.8 meq/L (22-26); ARTERIAL BLOOD GAS PCO2 29.3 mmHg (35-45); ARTERIAL BLOOD GAS PO2 63.9 mmHg (80-100)
[2019-07-28 04:37] LABS: MEAN CELL VOLUME 96 fl (80.0-100.0); MEAN CORPUSCULAR HGB CONC 34 g/dl (33.0-37.0); MEAN PLATELET VOLUME 11.2 fl (7.4-10.4); PLATELET COUNT 92 K/mm3 (130-400); RED BLOOD COUNT 2.45 M/mm3 (4.20-5.60); REDCELL DISTRIBUTION WIDTH-CV 15.9 % (11.5-14.5)
[2019-07-28 04:43] LABS: HEMATOCRIT 23.6 % (42.0-52.0); MEAN CORPUSCULAR HEMOGLOBIN 33 pg (27.0-31.0)
[2019-07-28 04:51] LABS: ALBUMIN 2.4 gm/dL (3.5-5.0); C-REACTIVE PROTEIN 6.5 mg/dL (0.0-0.9); CALCIUM 7.6 mg/dL (8.4-10.2); CREATININE, serum 1.77 (0.66-1.25); MAGNESIUM 1.7 mg/dL (1.6-2.3); PHOSPHOROUS 3.1 mg/dL (2.5-4.5); POTASSIUM 4.3 mmol/L (3.4-5.0); TOTAL PROTEIN 5.4 gm/dL (6.4-8.2)
[2019-07-28 05:06] LABS: BAND 6 % (0-10); BURR CELLS 1+; LYMPHOCYTE 7 % (20.0-51.0); NEUTROPHILS 86 % (42.0-75.2); PLATELET ESTIMATE DECREASED (NORMAL)
--- NOTE | 2019-07-28 06:00 | NUR ---
After midnight assessment and turning PT to assist using bedpan, PT stated he wanted to sit up because he was feeling nauseated. After raising the head of the bed, PT vomited and began becoming more tachpneic compared to baseline. PT noted to be breathing at a rate of high 40's-low 50's. Seeing that patient respiratory status was worsening, this RN called [facility] to report the increased RR rate, requested an ABG, zofran for nausea, and a rectal tube to decrease physical labor for the patient. At 0036, called [facility] again to report further worsening with O2 sats in the low 80's, extremely tachypneic and SOA. ECare provider questioned if PT would tolerate BiPap (unlikely, he already pulls at [employer]) and whether a breathing tx would help. Discussed that patient is COVID positive and provider asked if our policy allowed us to place PT on BiPap and give breathing tx despite this dx (Yes). At 0040, JOLENE Sanchez was notified of the PT's worsening condition. Provider immediately went to the PT room to review the situation. Agreed that PT needed an ABG and wanted to review the results. After JOLENE spoke with Dr. Boland, it was agreed to intubate the patient. Verbal consent was given twice by the patient to be intubated. This RN called PT hussainfrienmichele Dulce, at 0051 to update her. No answer. Anesthesia arrived at 0110, began intubation procedure at 0112 and ended at 0120. PT erasmo called back a few hours later and this RN updated her on the situation and gave education related to the ventilator.
--- NOTE | 2019-07-28 08:30 | NUR ---
FENTANYL GTT INFUSING AT 50MCG/HR (2.5ML/HR) PROPOFOL GTT INFUSING AT 25MCG/HR (13.7ML/HR) LEVOPHED GTT INFUSING AT 0.01MCG/KG/MIN (33.4)
--- NOTE | 2019-07-28 08:30 | NUR ---
FESTUS WRAPS APPLIED TO BLE, SCDS APPLIED PER DR ALVIN HARRIS
[2019-07-28 10:30] LABS: INR 2.2 (0.8-3.0); PROTHROMBIN TIME 24.6 SECONDS (9.7-12.8)
[2019-07-28 10:45] LABS: HEMOGLOBIN 7.6 g/dl (13.5-18.0)
--- NOTE | 2019-07-28 11:00 | NUR ---
ATTEMPTED TO CALL PATIENT'S GF, WILLI, TO PROVIDE UPDATE WELL FOR DR LIRA TO GIVE UPDATE AND INQUIRE IF SHE HAD ANY QUESTIONS FOR HIM. NO ANSWER. LEFT VOICEMAIL.
--- NOTE | 2019-07-28 12:00 | NUR ---
ATTEMPTED TO DECREASE LEVOPHED GTT. PT'S BP DROPPED TO SBP OF 85. LEVOPHED RESUMED AT PREVIOUS RATE
--- NOTE | 2019-07-28 15:44 | NUR ---
ATTEMPTED AGAIN TO CALL PATIENT'S GIRLFRIEND, SANDRA MÁRQUEZ. NO ANSWER, LEFT VOICEMAIL.
[2019-07-28 16:20] LABS: HEMATOCRIT 23.5 % (42.0-52.0)
--- NOTE | 2019-07-28 16:43 | NUR ---
PT'S GF, DPOA, CALLED BACK. PT'S DPOA UPDATED ON PATIENT'S STATUS. DPOA DENIES HAVING ANY FURTHER QUESTIONS AT THIS TIME.
--- NOTE | 2019-07-28 18:30 | NUR ---
PT SUDDENLY BECAME TACHYNEIC AND TACHYCARDIC. LUNGS COARSE THROUGOUT. RT CALLED TO EVALUATE POSSIBLE ETT CUFF LEAK. RT ABLE TO RESOLVE LEAK HOWEVER PATIENT CONTINUES TO BE TACHYPNEIC AT 35-45 AND HR 120-130BPM. STAT XRAY OBTAINED. DR ESQUIVEL CALLED AND NOTIFIED. PROVIDER BELIEVES S/S ARE DUE TO INADEQUATE SEDATION AND REQUESTED TO HAVE SEDATION INCREASED AND TO CALL ASHLEY RUSSELL. YVONNE CALLED AND NOTIFIED. PROPOFOL INCREASED TO 35MCG/KG/MIN AND FENT INCREASED TO 100MCG/HR.
--- NOTE | 2019-07-28 19:30 | NUR ---
Order from Dr. Boland through JOLENE Sanchez. Porpofol and fentanyl to be maxed out at 50mcg/kg/min and 200mcg/hr until patient's HR below 100, then can be titrated down.
--- NOTE | 2019-07-28 19:49 | NUR ---
Bedside report received from PUJA Disla
--- NOTE | 2019-07-28 20:00 | NUR ---
Patient resting quietly on ventilator. Patient is unable to move or follow commands as he is paralyzed. Patient is cooperating with the ventilator now. Pupils are pinpoint and fixed. Eyes are slightly jaundice. Patient's HR and rhythm are regular, tachycardic, normal S1 and S2. Lungs are coarse in all dempsey with a pleural friction rub heard in the left upper lobe. Bowels are hypoactive in all dempsey. Patient has a large amount of edema present in the BLE all the way up to his lower back. Abdomen is firm with ascites. Hands are also edematous. Scrotum and penis are a +4, scrotal sling adjusted. Patient has many small wounds and ulcers in various stages of healing to the BLE. Also some noted to the scrotum. Patient repositioned for comfort. No signs of pain. Will continue to monitor closely.
[2019-07-28 21:00] LABS: ARTERIAL BLD GAS O2 SATURATION 84.9 % (92-100); ARTERIAL BLD GAS TCO2 CT 20.8; ARTERIAL BLOOD GAS BASE EXCESS -5.3 (-2-2); ARTERIAL BLOOD GAS HCO3 19.7 meq/L (22-26); ARTERIAL BLOOD GAS PCO2 36.2 mmHg (35-45); ARTERIAL BLOOD GAS PO2 55.6 mmHg (80-100); ARTERIAL BLOOD GAS pH 7.35 (7.35-7.45)
--- NOTE | 2019-07-28 21:05 | NUR ---
ABG DONE AT 2100, DUE TO RESULTS YVONNE OSORIO APRN CALLED. DR. ESQUIVEL HAS CHANGES TO VENT OVER THE PHONE FROM A PEEP OF 12 TO 15 AND AN FI02 FROM 80% TO 90%.
[2019-07-29] VITALS (507 sets, daily range): BP systolic 82–111; BP diastolic 38–61; PULSE 80–108; TEMP 97.7–98.8; O2SAT 69–100
--- NOTE | 2019-07-29 | NUR ---
Patient remains mostly paralyzed. Does withdraw from some painful stimuli, but not all. Patient continues to cooperate with the ventilator. Assessment complete with no changes from previous exam. Bed bath provided. New bedding applied. Patient has no further needs at this time. Will continue to monitor. Call light within reach.
--- NOTE | 2019-07-29 04:00 | NUR ---
Patient pulls away from painful stimuli but is not alert. Pupils remain pinpoint. Patient does occassionally fight the vent, but calms down again quickly. Assessment complete with no changes from previous exams. Patient does push back when trying to turn. Patient does not appear to be in any pain. Will continue to monitor. Call light within reach.
[2019-07-29 05:22] LABS: HEMATOCRIT 25.4 % (42.0-52.0); HEMOGLOBIN 8.5 g/dl (13.5-18.0); MEAN CELL VOLUME 98 fl (80.0-100.0); MEAN CORPUSCULAR HEMOGLOBIN 33 pg (27.0-31.0); MEAN CORPUSCULAR HGB CONC 34 g/dl (33.0-37.0); MEAN PLATELET VOLUME 11.2 fl (7.4-10.4); PLATELET COUNT 75 K/mm3 (130-400); RED BLOOD COUNT 2.58 M/mm3 (4.20-5.60); REDCELL DISTRIBUTION WIDTH-CV 16.3 % (11.5-14.5)
[2019-07-29 05:33] LABS: ARTERIAL BLD GAS O2 SATURATION 85.4 % (92-100); ARTERIAL BLD GAS TCO2 CT 21.1; ARTERIAL BLOOD GAS BASE EXCESS -7.3 (-2-2); ARTERIAL BLOOD GAS HCO3 19.7 meq/L (22-26); ARTERIAL BLOOD GAS PCO2 46.6 mmHg (35-45); ARTERIAL BLOOD GAS pH 7.24 (7.35-7.45)
[2019-07-29 05:34] LABS: ALBUMIN 2.4 gm/dL (3.5-5.0); BILIRUBIN,TOTAL 2.2 mg/dL (0.0-1.0); CALCIUM 7.4 mg/dL (8.4-10.2); CREATININE, serum 2.44 (0.66-1.25); POTASSIUM 4.2 mmol/L (3.4-5.0); TOTAL PROTEIN 5.4 gm/dL (6.4-8.2)
[2019-07-29 05:56] LABS: ANISOCYTOSIS 1+; BAND 53 % (0-10); EOSINOPHIL 1 % (0-4); LYMPHOCYTE 4 % (20.0-51.0); METAMYELOCYTE 2 % (0-0); NEUTROPHILS 39 % (42.0-75.2); PLATELET ESTIMATE DECREASED (NORMAL)
[2019-07-29 05:57] LABS: TEAR DROP CELLS 2+
[2019-07-29 06:02] LABS: BURR CELLS 1+
--- NOTE | 2019-07-29 06:02 | NUR ---
PT ON DOCUMENTED SETTINGS, HE DOES NOT QUALIFY FOR A WEANING TRIAL THEREFORE ONE IS NOT BEING DONE. JOAO OSORIO APRN WAS CALLED AND PER DR. ALVIN CRAMER SETTINGS WILL BE CHANGED FI02 TO 100% AND RATE TO 26.
[2019-07-29 06:09] LABS: INR 2.1 (0.8-3.0); PROTHROMBIN TIME 23.6 SECONDS (9.7-12.8)
--- NOTE | 2019-07-29 07:20 | NUR ---
Bedside report given to PUJA Yo and PUJA Martinez. All drips confirmed. Transfer of care.
--- NOTE | 2019-07-29 09:33 | NUR ---
left arm PICC placement cancelled per Dr. Boland.
--- NOTE | 2019-07-29 11:40 | NUR ---
INTRAABDOMINAL PRESSURES MEASURED, PER DR. ESQUIVEL ORDER. IAP IS 13. DR. ESQUIVEL NOTIFIED OF THIS READING. NO FURTHER ORDERS RECEIVED.
--- NOTE | 2019-07-29 12:00 | NUR ---
Dr. Boland speaks with WILLI Cardona in regards to patient and proposed plan of care. She requests transfer to [facility]. Dr. Avila will initiate transfer.
--- NOTE | 2019-07-29 12:03 | NUR ---
ASHLEY attempted to contact Kit Barlow ([phone]), left message. SW attempted to contact Dulce, ([phone]), left message.
--- NOTE | 2019-07-29 12:08 | NUR ---
Social work is attempting to contact Dulce and Kit without success. Messages have been left with both, to contact ICU as soon as possible. Worker requested that [facility] police attempt to locate Dulce and Kit at their residences to advise to call ICU.
[2019-07-29 13:15] LABS: ARTERIAL BLD GAS O2 SATURATION 97.5 % (92-100); ARTERIAL BLD GAS TCO2 CT 19.6; ARTERIAL BLOOD GAS BASE EXCESS -7.2 (-2-2); ARTERIAL BLOOD GAS HCO3 18.4 meq/L (22-26); ARTERIAL BLOOD GAS PCO2 37.7 mmHg (35-45); ARTERIAL BLOOD GAS pH 7.31 (7.35-7.45)
--- NOTE | 2019-07-29 16:05 | NUR ---
Report received from PUJA Quijano. Patient is currently sedated in resting in bed. Will continue to monitor patient throughout shift.
--- NOTE | 2019-07-29 16:35 | NUR ---
PHONE CONSENT FOR TRANSFER TO [facility] IN [place] OBTAINED FROM WILLI FLORES BY SELVIN RN AND PUJA STACY
--- NOTE | 2019-07-29 17:00 | NUR ---
Bed assignment received for this patient at [facility]. Patient will be admitted to MICU Bed #16. WILLI Cardona has been updated at this time. [employer] called to arrange transportation.
--- NOTE | 2019-07-29 18:30 | NUR ---
Patient enroute to [facility] via [employer]. Report called to [facility]. Report given to PUJA White.
== END 2019-07-29 18:35 | disposition short-term general hospital (02) | DRG 871 ==
LOC: COL.ER 22:26 → MEDICAL 07-16 00:44 → COL.ER 07-16 00:44 → MEDICAL 07-18 12:35 → SURG 07-21 10:59 → MEDICAL 07-21 10:59 → SURG 07-21 13:37 → EU 07-21 13:37 → ICU 07-27 09:53
PROVIDERS: Internal Medicine; Internal Medicine Gastroenterology; Internal Medicine Pulmonary Disease; Nurse Practitioner; Nurse Practitioner Family; Physician Assistant; Student in an Organized Health Care Education/Training Program; Surgery; ADMIT Family Medicine
PROC: 02HV33Z Insertion of Infusion Device into Superior Vena Cava, Percutaneous Approach (ICD-10-PCS; principal; 2019-07-18)
PROC: 0W9G3ZZ Drainage of Peritoneal Cavity, Percutaneous Approach (ICD-10-PCS; 2019-07-19)
DX: A41.89 Other specified sepsis (principal); R65.21 Severe sepsis with septic shock; U07.1 COVID-19; J18.9 Pneumonia, unspecified organism; J96.01 Acute respiratory failure with hypoxia; L03.116 Cellulitis of left lower limb; L03.115 Cellulitis of right lower limb; E87.1 Hypo-osmolality and hyponatremia; L88 Pyoderma gangrenosum; R18.8 Other ascites; Q21.1 Atrial septal defect; B15.9 Hepatitis A without hepatic coma; N17.9 Acute kidney failure, unspecified; K92.2 Gastrointestinal hemorrhage, unspecified; G40.909 Epilepsy, unspecified, not intractable, without status epilepticus; R74.0 Nonspecific elevation of levels of transaminase and lactic acid dehydrogenase [LDH]; K76.9 Liver disease, unspecified; D64.9 Anemia, unspecified; E87.70 Fluid overload, unspecified; K74.60 Unspecified cirrhosis of liver; Z87.891 Personal history of nicotine dependence
CPT/HCPCS: OP; 99223-AI; 99232-AI; 99233-AI; 99239; A9284; C1751; C9113; J0330; J0696; J0744; J1650; J1940; J2185; J2543; J2704; J3010; J3370; J3475; J7030; J7040; J7050; J7060; J7120; P9047; Q9967